=== PATIENT | male | born 1985 | race Two or more races ===

== ENCOUNTER 2024-03-20 10:56 | Emergency (ER) | payer OTHER ==
[~2024-03-20] VITALS: Ht 170.2 cm; Wt 79.4 kg
[~2024-03-20 10:56] MED LIST: ATIVAN1 M1
[2024-03-20] MEDS ORDERED: COZAAR25 MG (11:44)
[2024-03-20] MEDS ORDERED: ORPHENADRINE CITRATE 30 MG/ML AMPUL IM STA (11:57)
[2024-03-20] MEDS ORDERED: DEXAMETHASONE 4 MG TABLET PO STA (11:57)
[2024-03-20] MEDS ORDERED: LABETALOL HCL 100 MG TABLET PO STA (11:58)
[2024-03-20] MEDS ORDERED: ORPHENADRINE CITRATE 30 MG/ML AMPUL ONE (12:02)
[2024-03-20] MEDS ORDERED: DEXAMETHASONE SODIUM PHOSPHATE 4 MG/ML VIAL ONE (12:03)
[2024-03-20] MEDS ORDERED: AMOXICILLIN 500 MG CAPSULE PO SCH ×2 (12:15→13:00)
[2024-03-20] MEDS ORDERED: NASAL MIST126 ML NASAL (12:19)
[2024-03-20] MEDS ORDERED: AMOX1TAB5 PO (12:19)
[2024-03-20] MEDS ORDERED: TRAMADOL HCL 50 MG TABLET PO STA (12:35)
== END 2024-03-20 12:48 | disposition home or self-care (01) ==
LOC: ER 10:57
DX: K08.89 Other specified disorders of teeth and supporting structures (principal); I10 Essential (primary) hypertension